=== PATIENT | male | born 1955 | race Caucasian/White ===

== ENCOUNTER → 2017-01-07 | Day surgery (SDC) | payer BC ==
[~2017-01-07] VITALS: Ht 190.5 cm; Wt 129.3 kg
[~2017-01-07] MED LIST: ACETAMINOPHEN 325 MG TAB PO PRN; AcetaZOLAMIDE 500 MG ER CAP PO ONE; BIMA01SOL OU; BISO10TA3 PO; CEFUROXIME 1MG/0.1ML INTRACAMERAL INJ As Ordered ONE; CYCLOPENTOLATE 2% OPHTH SOLN OS ONE; HEALON DUET (HEALON 10MG/ML 0.55ML & HEALON ENDOCOAT 30MG/ML 0.85ML) As Ordered ONE; HEALON DUET (HEALON 10MG/ML 0.55ML & HEALON ENDOCOAT 30MG/ML 0.85ML) XX ONE; LIDOCAINE 1% SDV 5 ML VIAL As Ordered ONE; LIDOCAINE 1% SDV 5 ML VIAL XX ONE; LIDOCAINE 4% INJ 5 ML AMP OU ONE; LR 1,000 ML IV SCH; MECL-86 PO; MIDAZOLAM INJ 2 MG/2 ML VIAL (J2250) As Ordered ONE; MOXIFLOXACIN IN BSS 0.25MG/0.25ML INTRACAMERAL INJ (OR EYE ONLY)(J2280) ICAM ONE; NORT10CA2 PO; OFLOXACIN 0.3 % (OCUFLOX) OPTH SOL 5ML OS ONE; OMEP20CA3 PO; ONDANSETRON 4MG/2ML VIAL (J2405) IV PRN; PHENYLEPHRINE 2.5% OPHTH SOL 2ML As Ordered ONE; PHENYLEPHRINE 2.5% OPHTH SOL 2ML OS ONE; POVIDONE-IODINE 5% OPHTH PREP SOL 30ML As Ordered ONE; PROPARACAINE 0.5% OPHTH SOL 15ML OS PRN; TRIAMCINOLONE PRES FR 40 MG/ML 1ML(TRIESENCE)(OR EYE ONLY)(J3300 PER 1MG) IO ONE; TRIMETHOBENZAMIDE 300 MG CAP PO PRN; TROPICAMIDE 1% OPHTH SOLN 2 ML OS ONE; VERA120T2 PO; VERA240T16 PO; [UNRECOGNIZED DRUG - OTHER] IR ONE; fentaNYL 100 MCG/2 ML INJECTION (J3010) As Ordered ONE
[2017-01-07 14:45] VITALS: BP 129/82
--- NOTE | 2017-01-07 17:32 | RO ---
DATE OF PROCEDURE: 01/07/2017 PREPROCEDURE DIAGNOSES: Cataract of left eye and glaucoma of left eye. POSTPROCEDURE DIAGNOSES: Cataract of left eye and glaucoma of left eye. PROCEDURE: Femtosecond laser with phacoemulsification, intraocular lens implantation of model ZLB 00, power 10 diopters, and endocyclophotocoagulation for the left eye, and also placement of the Glaukos iStent, serial #[id number]. SURGEON: Dr. Minh Coto MUNICIPAL CLERK: None. ANESTHESIA: COMPLICATIONS: None. DESCRIPTION OF PROCEDURE: Procedure in detail: The patient was first brought to the laser room; and after adequate review of the chart and the plan, the patient interface was placed, and suction was activated. OCT images were reviewed, and then the laser was activated. Capsulorrhexis lens fragmentation, primary and secondary corneal incisions, and arcuate incisions were made according to plan. Following which, the interface was released, the patient was brought to the operating room, laid in supine position, the eye was prepped and draped in a sterile fashion for ophthalmic surgery, and a lid speculum was placed. All the incisions were opened, and after hydrodissection, phacoemulsification was done in [id number] method, followed by aspiration of the cortical material. Healon was injected into the capsular bag and intraocular lens placed. Healon was then placed in the ciliary sulcus to visualize the ciliary processes with the help of the EndoProbe, and under video guidance, endocyclophotocoagulation was done 290 degrees with the help of the EndoProbe at 0.25 mW. Following this, Healon was then injected into the anterior chamber to visualize the inferonasal trabecular meshwork under high mag with the patient's head rotated away from the surgeon with the help of the gonioprism. iStent was then placed in the infranasal trabecular meshwork, and nice blood reflux was noted. Excess viscoelastic was then aspirated. Wound hydrated. Lid speculum removed. The patient returned to the recovery room in stable condition.
== END | disposition home or self-care (01) ==
LOC: M SDC 12:02
PROVIDERS: ATTEND Ophthalmology
DX: H26.9 Unspecified cataract (principal); H40.812 Glaucoma with increased episcleral venous pressure, left eye; I10 Essential (primary) hypertension; K21.9 Gastro-esophageal reflux disease without esophagitis; Z88.1 Allergy status to other antibiotic agents; G47.30 Sleep apnea, unspecified; Z79.899 Other long term (current) drug therapy
CPT/HCPCS: 66183; 66711; 66984; C1783; J2250; J2280; J3010; J3300

== ENCOUNTER → 2017-01-28 | Day surgery (SDC) | payer BC ==
[~2017-01-28] VITALS: Ht 190.5 cm; Wt 129.3 kg
[~2017-01-28] MED LIST changes: +BSS with VANC/TOB/EPI for EYE CASES IR ONE; +CYCLOPENTOLATE 2% OPHTH SOLN OD ONE; -CYCLOPENTOLATE 2% OPHTH SOLN OS ONE; +D5W/0.2% SODIUM CHLORIDE 250 ML IV SCH; -HEALON DUET (HEALON 10MG/ML 0.55ML & HEALON ENDOCOAT 30MG/ML 0.85ML) XX ONE; +KETOROLAC 0.5% OPHTH SOLN OD ONE; -LIDOCAINE 1% SDV 5 ML VIAL XX ONE; -LR 1,000 ML IV SCH; -MOXIFLOXACIN IN BSS 0.25MG/0.25ML INTRACAMERAL INJ (OR EYE ONLY)(J2280) ICAM ONE; +OFLOXACIN 0.3 % (OCUFLOX) OPTH SOL 5ML OD ONE; -OFLOXACIN 0.3 % (OCUFLOX) OPTH SOL 5ML OS ONE; -ONDANSETRON 4MG/2ML VIAL (J2405) IV PRN; -PHENYLEPHRINE 2.5% OPHTH SOL 2ML As Ordered ONE; +PHENYLEPHRINE 2.5% OPHTH SOL 2ML OD ONE; -PHENYLEPHRINE 2.5% OPHTH SOL 2ML OS ONE; +PROPARACAINE 0.5% OPHTH SOL 15ML OD PRN; -PROPARACAINE 0.5% OPHTH SOL 15ML OS PRN; -TRIAMCINOLONE PRES FR 40 MG/ML 1ML(TRIESENCE)(OR EYE ONLY)(J3300 PER 1MG) IO ONE; +TROPICAMIDE 1% OPHTH SOLN 2 ML OD ONE; -TROPICAMIDE 1% OPHTH SOLN 2 ML OS ONE; -[UNRECOGNIZED DRUG - OTHER] IR ONE
[2017-01-28 14:30] VITALS: BP 126/79
--- NOTE | 2017-01-28 19:31 | RO ---
DATE OF PROCEDURE: 01/28/2017 PREPROCEDURE DIAGNOSIS: Cataract of right eye. Glaucoma right eye. POSTPROCEDURE DIAGNOSIS: Cataract of right eye. Glaucoma right eye. PROCEDURE: Femtosecond laser with phacoemulsification and intraocular lens implantation of ZKB00, power 8.5 diopters, and endocyclophotocoagulation along with placement of the glaucoma drainage device I-Stent, model P-50. SURGEON: Minh Coto MD MECHANICAL SHOVEL OPERATOR: None. ANESTHESIA: Local IV standby. COMPLICATIONS: None. DESCRIPTION OF PROCEDURE: The patient was brought to the laser room and after reviewing the OCT images and adequate patient interface and suction, the laser was activated. Capsulorrhexis lens fragmentation, primary and secondary corneal incisions and arcuate incisions were made per plan. The patient's interface and suction was released. The patient was brought to the operating room, laid in supine position and the eye was prepped and draped in a sterile fashion for opthalmic surgery. A lid speculum was placed. Primary and secondary corneal incisions were opened and EndoCoat was injected into the anterior chamber. The arcuate incision was also opened. After the EndoCoat was injected anterior chamber, phacoemulsification was carried out in a divide and conquer method after removing the capsulorrhexis. Cortical material was then aspirated and Healon was placed in the capsular bag followed by the introduction of the intraocular lens. Healon was then placed in the ciliary sulcus. The visualized ciliary processes under video screen and with the help of the EndoProbe, endocyclophotocoagulation was done around 280 degrees at 0.35 mV. Good results were noted by the shrinking of the ciliary processes. The patient's head was then rotated away from the surgeon and microscope rotated towards the surgeon. Under high magnification with the help of the Gonio lens the I-Stent was then placed in the inferonasal tubercular meshwork. Nice blood reflux was noted. Excess Healon was then aspirated. Wound hydrated. Lid speculum removed. Patient returned to the recovery room in stable condition.
== END | disposition home or self-care (01) ==
LOC: M SDC 11:02
PROVIDERS: ATTEND Ophthalmology
DX: H26.9 Unspecified cataract (principal); H40 Glaucoma; I10 Essential (primary) hypertension; G47.30 Sleep apnea, unspecified; Z88.1 Allergy status to other antibiotic agents; Z86.73 Personal history of transient ischemic attack (TIA), and cerebral infarction without residual deficits; Z79.899 Other long term (current) drug therapy; K21.9 Gastro-esophageal reflux disease without esophagitis
CPT/HCPCS: 66183; 66711; 66984; C1783; J2250; J3010